=== PATIENT | female | born 1980 | race Caucasian/White ===

== ENCOUNTER 2018-05-26 18:17 | Emergency (ER) | payer OTHER ==
[~2018-05-26] VITALS: Ht 149.9 cm; Wt 63.5 kg
[~2018-05-26 18:17] MED LIST: DILANTIN30 MG; KETO10TA2 PO; ZOLOFT50 MG
== END 2018-05-26 20:21 | disposition home or self-care (01) ==
LOC: ER 18:17
DX: R30.0 Dysuria (principal); R53.1 Weakness